=== PATIENT | female | born 2000 | race African-American/Black ===

== ENCOUNTER 2022-08-23 22:46 | Emergency (ER) | payer MEDICAID ==
[~2022-08-23] VITALS: Ht 154.9 cm; Wt 75.0 kg
[2022-08-24 00:09] LABS: Basophils # (auto) 0 10 ^3/uL (0-0.2); Basophils % (auto) 0.6 % (0.0-2.0); Eosinophils # (auto) 0 10 ^3/uL (0-0.8); Eosinophils % (auto) 0.6 % (0.0-7.0); Hematocrit 36.9 % (36.0-46.0); Hemoglobin 11.9 g/dL (12.2-16.2); Lymphocytes # (auto) 1.4 10 ^3/uL (0.4-5.4); Lymphocytes % (auto) 24.7 % (10.0-50.0); Mean Corpuscular Hemoglobin 25.4 pg (28.0-32.0); Mean Corpuscular Hgb Conc. 32.2 g/dL (32.0-36.0); Mean Corpuscular Volume 78.8 fL (80.0-100.0); Monocytes # (auto) 0.6 10 ^3/uL (0-1.3); Monocytes % (auto) 9.9 % (0.0-12.0); Neutrophils # (auto) 3.7 10 ^3/uL (1.6-8.6); Neutrophils % (auto) 64.2 % (37.0-80.0); Nucleated Red Blood Cells % 0.1 %; Red Blood Cells 4.68 10^6/uL (4.0-5.20); Red Cell Distribution Width 17.6 % (11.8-14.3); White Blood Cell 5.8 10^3/uL (4.4-10.8)
[2022-08-24 00:28] LABS: Albumin 3.2 g/dL (3.4-5.0); Calcium 8.7 mg/dL (8.5-10.1); Potassium 3.8 mmol/L (3.5-5.1)
[2022-08-24 00:31] LABS: BUN/Creatinine Ratio 13.3 (10.0-20.0)
[2022-08-24 00:44] LABS: Urine Bacteria NONE SEEN /hpf (None Seen); Urine Blood Negative /uL (Negative); Urine WBC 1 /hpf (0 - 5)
[2022-08-24 00:50] LABS: Bilirubin, Total 0.3 mg/dL (0.2-1.0)
[2022-08-24 02:55] VITALS: BP 103/46
[2022-08-24] MEDS ORDERED: NITR-87 PO (02:55)
[2022-08-24] MEDS ORDERED: ALBUAER3 IN (02:55)
[2022-08-24] MEDS ORDERED: PREN-96 PO (02:55)
== END 2022-08-24 03:02 | disposition home or self-care (01) ==
LOC: ER 22:46
DX: O99.511 Diseases of the respiratory system complicating pregnancy, first trimester (principal); R06.02 Shortness of breath; J20.9 Acute bronchitis, unspecified; R10.2 Pelvic and perineal pain; Z86.2 Personal history of diseases of the blood and blood-forming organs and certain disorders involving the immune mechanism; Z3A.10 10 weeks gestation of pregnancy
CPT/HCPCS: 36415; 76801; 80053; 81001; 84702; 85025; 86850; 86900; 86901

== ENCOUNTER 2022-12-12 13:50 | Observation (INO) | payer OTHER ==
[~2022-12-12 13:50] MED LIST: ALBUAER3 IN; NITR-87 PO; PREN-96 PO
== END 2022-12-12 15:18 | disposition home or self-care (01) ==
LOC: LDRP 13:50
PROVIDERS: ADMIT Obstetrics & Gynecology; ATTEND Obstetrics & Gynecology
DX: O46.92 Antepartum hemorrhage, unspecified, second trimester (principal); O62.9 Abnormality of forces of labor, unspecified; Z3A.25 25 weeks gestation of pregnancy; Z87.891 Personal history of nicotine dependence
CPT/HCPCS: 59025; 76815; 81002; 94760; G0378

== ENCOUNTER 2023-02-22 09:50 | Observation (INO) | payer OTHER | END 2023-02-22 10:55 | disposition home or self-care (01) | LOC: LDRP 09:50 | PROVIDERS: ADMIT Obstetrics & Gynecology; ATTEND Obstetrics & Gynecology | DX: O62.9 Abnormality of forces of labor, unspecified (principal); Z87.891 Personal history of nicotine dependence; Z3A.36 36 weeks gestation of pregnancy | CPT/HCPCS: 59025; 81002; 94760; G0378 ==

== ENCOUNTER 2023-04-08 00:26 | Emergency (ER) | payer MEDICAID, OTHER ==
[~2023-04-08] VITALS: Ht 152.4 cm; Wt 79.5 kg
[2023-04-08 00:45] VITALS: BP 93/60; PULSE 78; RESP 16; TEMP 99.2; O2SAT 97
[2023-04-08] MEDS ORDERED: KETOROLAC TROMETH 60MG/2ML VIAL IM ONE (01:30)
[2023-04-08] MEDS ORDERED: BACDST PO (01:38)
[2023-04-08] MEDS ORDERED: IBUP1TAB5 PO (01:38)
== END 2023-04-08 01:58 | disposition home or self-care (01) ==
LOC: ER 00:26
DX: L02.32 Furuncle of buttock (principal); Z86.2 Personal history of diseases of the blood and blood-forming organs and certain disorders involving the immune mechanism; Z79.899 Other long term (current) drug therapy
CPT/HCPCS: 96372; 99283; J1885